=== PATIENT | male | born 1935 | race Caucasian/White ===

== ENCOUNTER 2016-05-15 10:42 | Inpatient (IN) | payer OTHER ==
[~2016-05-15] VITALS: Ht 180.3 cm; Wt 58.3 kg
[2016-05-15 12:13] LABS: HEMATOCRIT 31.4 % (38.0-50.0); MCH 27.9 PG (29.0-34.0); MCHC 30.6 G/DL (30.0-36.0); MCV 91.3 FL (86-99); MEAN PLAT.VOLUME 9.4 uM^3 (9.0-12.4); PLATELET COUNT 230 K/uL (156-360); RBC DIS.WIDTH-CV 16.8 % (11.8-14.6); RBC DIS.WIDTH-SD 54.8 % (39-53); RED BLOOD COUNT 3.44 M/uL (4.00-5.50); WHITE BLOOD COUNT 7.6 K/uL (4.1-10.2)
[2016-05-15 12:27] LABS: CHLORIDE 107 mEq/L (99-109); POTASSIUM 4.4 mEq/L (3.7-5.4); SODIUM 140 mEq/L (136-147)
[2016-05-15 12:30] LABS: ANION GAP 10 MEQ/L (2-14)
[2016-05-15 12:33] LABS: GFR ESTIMATE (CALCULATED) 56 mL/min/
[2016-05-15 12:34] LABS: UREA NITROGEN (BUN) 30 mg/dL (9-23)
[2016-05-15 12:35] LABS: TROP-I INTERPRETATION NEGATIVE; TROPONIN-I < 0.01 ng/mL (0.0-0.30)
[2016-05-15 12:37] LABS: GLUCOSE 113 mg/dL (70-99)
[2016-05-15] MEDS ORDERED: METFORMIN HCL1000 MG PO (12:44)
[2016-05-15] MEDS ORDERED: PREDNISONE5 MG PO (12:44)
[2016-05-15] MEDS ORDERED: LOSARTAN POTASS25 MG PO (12:44)
[2016-05-15] MEDS ORDERED: ATORVASTATIN CA20 MG PO (12:45)
[2016-05-15 20:49] VITALS: BP 141/67
[2016-05-15 21:25] LABS: TROP-I INTERPRETATION NEGATIVE; TROPONIN-I < 0.01 ng/mL (0.0-0.30)
[2016-05-15 23:33] VITALS: BP 127/61
[2016-05-16 04:19] VITALS: BP 145/66
[2016-05-16 04:41] LABS: HEMATOCRIT 31.9 % (38.0-50.0); MCH 27.7 PG (29.0-34.0); MCHC 30.7 G/DL (30.0-36.0); MCV 90.1 FL (86-99); MEAN PLAT.VOLUME 9.6 uM^3 (9.0-12.4); PLATELET COUNT 208 K/uL (156-360); RBC DIS.WIDTH-CV 16.9 % (11.8-14.6); RBC DIS.WIDTH-SD 54.1 % (39-53); RED BLOOD COUNT 3.54 M/uL (4.00-5.50); WHITE BLOOD COUNT 5.5 K/uL (4.1-10.2)
[2016-05-16 04:43] LABS: EOSINOPHIL (%) 0 % (0-5); IMMATURE GRANULOCYTE (%) 0.2 % (0.0-0.7); IMMATURE GRANULOCYTE COUNT 0.1 K/uL; LYMPHOCYTE COUNT 0.6 K/uL (1.0-2.8); MONOCYTE (%) 6.7 % (3-12); MONOCYTE COUNT 0.4 K/uL (0-0.8); NEUTROPHIL (%) 81.5 % (45-76); NEUTROPHIL COUNT 4.5 K/uL (1.8-6.4)
[2016-05-16 04:50] LABS: CHLORIDE 105 mEq/L (99-109); POTASSIUM 3.9 mEq/L (3.7-5.4); SODIUM 138 mEq/L (136-147)
[2016-05-16 04:52] LABS: GLUCOSE 98 mg/dL (70-99)
[2016-05-16 04:53] LABS: ANION GAP 9 MEQ/L (2-14)
[2016-05-16 04:54] LABS: TOTAL BILIRUBIN 0.4 mg/dL (0.0-1.0)
[2016-05-16 04:55] LABS: ALKALINE PHOSPHATASE 71 IU/L (3-129)
[2016-05-16 04:56] LABS: GFR ESTIMATE (CALCULATED) > 59 mL/min/
[2016-05-16 04:57] LABS: UREA NITROGEN (BUN) 24 mg/dL (9-23)
[2016-05-16 05:01] LABS: TROP-I INTERPRETATION NEGATIVE; TROPONIN-I < 0.01 ng/mL (0.0-0.30)
[2016-05-16 05:11] LABS: IRON 13 MCG/DL (35-150)
[2016-05-16 07:43] LABS: FERRITIN 180 NG/ML (22-322)
[2016-05-16 09:00] VITALS: BP 122/58
[2016-05-16 12:11] LABS: POINT-OF-CARE USER ID NUTSLF44
[2016-05-16 17:52] LABS: POINT-OF-CARE METER ID UU14174216; POINT-OF-CARE USER ID NUTSLF44
[2016-05-16 18:02] VITALS: BP 131/60
[2016-05-16 19:22] VITALS: BP 129/58
[2016-05-16 21:11] LABS: POINT-OF-CARE METER ID UU13113781
[2016-05-16 23:42] VITALS: BP 123/69
[2016-05-17 05:18] VITALS: BP 119/62
[2016-05-17 07:30] VITALS: BP 121/69
[2016-05-17] MEDS ORDERED: ZITHROMAX250 MG PO (12:47)
== END 2016-05-17 14:50 | disposition home or self-care (01) | DRG 315 ==
LOC: EME 10:42 → EDOF 16:26 → 4EAST 16:26
PROVIDERS: Internal Medicine
DX: I95.9 Hypotension, unspecified (principal); C18.9 Malignant neoplasm of colon, unspecified; C79.89 Secondary malignant neoplasm of other specified sites; R62.7 Adult failure to thrive; J20.9 Acute bronchitis, unspecified; R79.89 Other specified abnormal findings of blood chemistry; E11.9 Type 2 diabetes mellitus without complications; I44.7 Left bundle-branch block, unspecified; R63.4 Abnormal weight loss; E78.5 Hyperlipidemia, unspecified; E86.0 Dehydration; D64.9 Anemia, unspecified; R53.1 Weakness; Z92.3 Personal history of irradiation; Z93.3 Colostomy status; Z92.21 Personal history of antineoplastic chemotherapy; Z79.82 Long term (current) use of aspirin; Z79.4 Long term (current) use of insulin; Z93.1 Gastrostomy status
CPT/HCPCS: 36415; 71020; 74000; 80048; 80053; 82306; 82306 GA; 82607; 82607 GA; 82728; 82746; 82948; 83036; 83540; 84443; 84466; 84484; 85025; 85027; 93005; 93306; 99281; 99285; J0456; J1644; J1815; J7030; J7512

== ENCOUNTER 2016-05-22 15:45 | Emergency (ER) | payer OTHER ==
[~2016-05-22] VITALS: Ht 180.3 cm; Wt 62.5 kg
[~2016-05-22 15:45] MED LIST: ATORVASTATIN CA20 MG PO; LOSARTAN POTASS25 MG PO; METFORMIN HCL1000 MG PO; PREDNISONE5 MG PO; ZITHROMAX250 MG PO
[2016-05-22 16:46] LABS: HEMATOCRIT 32.9 % (38.0-50.0); MCH 27.7 PG (29.0-34.0); MCV 89.4 FL (86-99); MEAN PLAT.VOLUME 8.9 uM^3 (9.0-12.4); PLATELET COUNT 310 K/uL (156-360); RBC DIS.WIDTH-CV 16.5 % (11.8-14.6); RBC DIS.WIDTH-SD 52.3 % (39-53); RED BLOOD COUNT 3.68 M/uL (4.00-5.50); WHITE BLOOD COUNT 8.6 K/uL (4.1-10.2)
[2016-05-22 16:56] LABS: CHLORIDE 104 mEq/L (99-109); POTASSIUM 5.1 mEq/L (3.7-5.4); SODIUM 139 mEq/L (136-147)
[2016-05-22 16:57] LABS: GLUCOSE 153 mg/dL (70-99)
[2016-05-22 16:59] LABS: ANION GAP 11 MEQ/L (2-14)
[2016-05-22 17:01] LABS: GFR ESTIMATE (CALCULATED) > 59 mL/min/
[2016-05-22 17:02] LABS: UREA NITROGEN (BUN) 35 mg/dL (9-23)
[2016-05-22 17:05] LABS: TROP-I INTERPRETATION NEGATIVE; TROPONIN-I < 0.01 ng/mL (0.0-0.30)
[2016-05-22] MEDS ORDERED: ZITHROMAX Z-PA250 MG PO (18:30)
[2016-05-22 19:05] VITALS: BP 106/57
== END 2016-05-22 19:10 | disposition home or self-care (01) ==
LOC: EME 15:45
DX: J40 Bronchitis, not specified as acute or chronic (principal); E11.9 Type 2 diabetes mellitus without complications; E78.5 Hyperlipidemia, unspecified; I10 Essential (primary) hypertension; Z93.1 Gastrostomy status; Z85.038 Personal history of other malignant neoplasm of large intestine; Z88.6 Allergy status to analgesic agent
CPT/HCPCS: 71010; 80048; 84484; 85027; 85610; 85730; 86850; 86900; 86901; 93005; 99281; 99285

== ENCOUNTER 2016-06-14 18:18 | Emergency (ER) | payer OTHER ==
[~2016-06-14] VITALS: Ht 180.3 cm; Wt 58.8 kg
[~2016-06-14 18:18] MED LIST changes: +ZITHROMAX Z-PA250 MG PO
[2016-06-14 19:53] LABS: HEMATOCRIT 35.2 % (38.0-50.0); MCH 28.5 PG (29.0-34.0); MCHC 32.4 G/DL (30.0-36.0); RBC DIS.WIDTH-CV 19.3 % (11.8-14.6); RBC DIS.WIDTH-SD 61.2 % (39-53); WHITE BLOOD COUNT 7.9 K/uL (4.1-10.2)
[2016-06-14 20:04] LABS: CHLORIDE 105 mEq/L (99-109); POTASSIUM 4.5 mEq/L (3.7-5.4); SODIUM 136 mEq/L (136-147)
[2016-06-14 20:06] LABS: GLUCOSE 147 mg/dL (70-99)
[2016-06-14 20:07] LABS: ANION GAP 9 MEQ/L (2-14)
[2016-06-14 20:09] LABS: GFR ESTIMATE (CALCULATED) > 59 mL/min/
[2016-06-14 20:10] LABS: UREA NITROGEN (BUN) 38 mg/dL (9-23)
[2016-06-14 20:41] LABS: ADD MIUA? NO; BILIRUBIN NEGATIVE; BLOOD NEGATIVE; COLOR YELLOW ((YELLOW)); GLUCOSE (STRIP) >=500; KETONES NEGATIVE; LEUKOCYTES NEGATIVE; NITRITE NEGATIVE; PROTEIN (STRIP) 30; SPECIFIC GRAVITY 1.017 (1.000-1.030); UCUL ADDED? NO; UROBILINOGEN 0.2 MG/DL (0.2-1.0)
[2016-06-14 20:48] LABS: TROP-I INTERPRETATION NEGATIVE; TROPONIN-I 0.02 ng/mL (0.0-0.30)
[2016-06-14 21:01] LABS: MEAN PLAT.VOLUME 8.8 uM^3 (9.0-12.4)
[2016-06-14 21:02] LABS: PLATELET COUNT 189 K/uL (156-360)
[2016-06-14 21:09] LABS: INFLUENZA A VIRAL ANTIGEN NEGATIVE; INFLUENZA B VIRAL ANTIGEN NEGATIVE
[2016-06-14 21:56] VITALS: BP 127/73
== END 2016-06-14 21:56 | disposition home or self-care (01) ==
LOC: EME → EDBD 18:18 → EME 21:56
PROVIDERS: Emergency Medicine
DX: E86.0 Dehydration (principal); R53.1 Weakness; E11.9 Type 2 diabetes mellitus without complications; E78.5 Hyperlipidemia, unspecified; Z85.038 Personal history of other malignant neoplasm of large intestine; Z88.6 Allergy status to analgesic agent; Z87.891 Personal history of nicotine dependence
CPT/HCPCS: 71020; 80048; 81003; 84484; 85027; 87502; 93005; 99281; 99284; J7030

== ENCOUNTER 2016-07-09 11:12 | Emergency (ER) | payer OTHER ==
[~2016-07-09] VITALS: Ht 180.3 cm; Wt 58.9 kg
[2016-07-09 12:35] LABS: EOSINOPHIL (%) 0 % (0-5); HEMATOCRIT 35.6 % (38.0-50.0); IMMATURE GRANULOCYTE (%) 1.9 % (0.0-0.7); IMMATURE GRANULOCYTE COUNT 0.1 K/uL; INSTRUMENT ABS NEUTROPHIL CT 6.3 K/uL; LYMPHOCYTE COUNT 0.2 K/uL (1.0-2.8); MCH 29.2 PG (29.0-34.0); MCHC 32.3 G/DL (30.0-36.0); MCV 90.4 FL (86-99); MEAN PLAT.VOLUME 9.1 uM^3 (9.0-12.4); MONOCYTE (%) 3.5 % (3-12); MONOCYTE COUNT 0.2 K/uL (0-0.8); NEUTROPHIL (%) 91.1 % (45-76); NEUTROPHIL COUNT 6.3 K/uL (1.8-6.4); PLATELET COUNT 161 K/uL (156-360); RBC DIS.WIDTH-CV 18.7 % (11.8-14.6); RBC DIS.WIDTH-SD 62.8 % (39-53); RED BLOOD COUNT 3.94 M/uL (4.00-5.50); WHITE BLOOD COUNT 6.9 K/uL (4.1-10.2)
[2016-07-09 12:45] LABS: CHLORIDE 102 mEq/L (99-109); POTASSIUM 4.7 mEq/L (3.7-5.4); SODIUM 138 mEq/L (136-147)
[2016-07-09 12:47] LABS: GLUCOSE 323 mg/dL (70-99)
[2016-07-09 12:48] LABS: ANION GAP 14 MEQ/L (2-14)
[2016-07-09 12:49] LABS: TOTAL BILIRUBIN 0.6 mg/dL (0.0-1.0)
[2016-07-09 12:51] LABS: ALKALINE PHOSPHATASE 76 IU/L (3-129); GFR ESTIMATE (CALCULATED) > 59 mL/min/
[2016-07-09 12:52] LABS: UREA NITROGEN (BUN) 48 mg/dL (9-23)
[2016-07-09 12:54] LABS: LIPASE 102 U/L (1.0-51.0)
[2016-07-09 13:39] LABS: ADD MIUA? YES; BILIRUBIN NEGATIVE; BLOOD MODERATE; COLOR YELLOW ((YELLOW)); GLUCOSE (STRIP) >=500; KETONES NEGATIVE; LEUKOCYTES LARGE; NITRITE NEGATIVE; PROTEIN (STRIP) 30; SPECIFIC GRAVITY 1.023 (1.000-1.030); UROBILINOGEN 0.2 MG/DL (0.2-1.0)
[2016-07-09 13:46] LABS: BACTERIA RARE /HPF; BUDDING YEAST 1+; EPITHELIAL CELLS NONE SEEN /HPF; MUCUS NONE SEEN /LPF; UCUL ADDED? NO; WHITE BLOOD CELLS 20-30 /HPF (0-5)
[2016-07-09] MEDS ORDERED: BACTRIM,SEPT1 TABLET PO (16:27)
[2016-07-09 17:46] VITALS: BP 119/74
== END 2016-07-09 17:47 | disposition home or self-care (01) ==
LOC: EME → EDBD 11:12 → EME 17:47
PROVIDERS: Emergency Medicine
DX: N39.0 Urinary tract infection, site not specified (principal); R53.1 Weakness; R62.7 Adult failure to thrive; E11.9 Type 2 diabetes mellitus without complications; E78.5 Hyperlipidemia, unspecified; I10 Essential (primary) hypertension; K21.9 Gastro-esophageal reflux disease without esophagitis; Z79.84 Long term (current) use of oral hypoglycemic drugs; Z87.891 Personal history of nicotine dependence
CPT/HCPCS: 71010; 80053; 81003; 83690; 85025; 99281; 99285; J0696; J7030; J7050

== ENCOUNTER 2016-07-13 16:59 | Inpatient (IN) | payer OTHER ==
[~2016-07-13] VITALS: Ht 180.3 cm; Wt 64.0 kg
[~2016-07-13 16:59] MED LIST changes: +BACTRIM,SEPT1 TABLET PO
[2016-07-13 17:57] LABS: HEMATOCRIT 36.3 % (38.0-50.0); MCH 29.7 PG (29.0-34.0); MCHC 33.3 G/DL (30.0-36.0); MEAN PLAT.VOLUME 8.9 uM^3 (9.0-12.4); PLATELET COUNT 179 K/uL (156-360); RBC DIS.WIDTH-CV 18.6 % (11.8-14.6); RBC DIS.WIDTH-SD 61.1 % (39-53); RED BLOOD COUNT 4.08 M/uL (4.00-5.50)
[2016-07-13 17:58] LABS: WHITE BLOOD COUNT 9.4 K/uL (4.1-10.2)
[2016-07-13 18:02] LABS: CHLORIDE 99 mEq/L (99-109); SODIUM 132 mEq/L (136-147)
[2016-07-13 18:03] LABS: POTASSIUM 5.7 mEq/L (3.7-5.4)
[2016-07-13 18:04] LABS: GLUCOSE 263 mg/dL (70-99)
[2016-07-13 18:06] LABS: ANION GAP 13 MEQ/L (2-14)
[2016-07-13 18:08] LABS: ALKALINE PHOSPHATASE 73 IU/L (3-129); GFR ESTIMATE (CALCULATED) > 59 mL/min/
[2016-07-13 18:09] LABS: UREA NITROGEN (BUN) 49 mg/dL (9-23)
[2016-07-13 18:10] LABS: TOTAL BILIRUBIN 0.4 mg/dL (0.0-1.0)
[2016-07-13 18:35] LABS: ADD MIUA? YES; BILIRUBIN NEGATIVE; BLOOD NEGATIVE; COLOR YELLOW ((YELLOW)); GLUCOSE (STRIP) 150; KETONES NEGATIVE; LEUKOCYTES SMALL; NITRITE NEGATIVE; PROTEIN (STRIP) 30; SPECIFIC GRAVITY 1.019 (1.000-1.030); UROBILINOGEN 0.2 MG/DL (0.2-1.0)
[2016-07-13 19:19] LABS: BACTERIA NONE SEEN /HPF; EPITHELIAL CELLS NONE SEEN /HPF; HYALINE CASTS 0-5 /LPF; MUCUS NONE SEEN /LPF; RED BLOOD CELLS 0-5 /HPF (0-5); UCUL ADDED? NO
[2016-07-13] MEDS ORDERED: DEXAMETHASONE4 MG PO (20:17)
[2016-07-13] MEDS ORDERED: SERTRALINE HCL50 MG PO (20:17)
[2016-07-13 23:12] LABS: POINT-OF-CARE METER ID UU14100415
[2016-07-14 00:15] VITALS: BP 119/65
[2016-07-14 00:51] LABS: POINT-OF-CARE METER ID UU13113725
[2016-07-14 05:56] LABS: POINT-OF-CARE METER ID UU13113725
[2016-07-14 07:09] VITALS: BP 108/60
[2016-07-14 13:05] VITALS: BP 125/73
[2016-07-14 16:37] LABS: POINT-OF-CARE METER ID UU13113725
[2016-07-14 23:04] VITALS: BP 114/59
[2016-07-14 23:11] VITALS: BP 119/63
[2016-07-15 06:02] LABS: POINT-OF-CARE METER ID UU13113725
[2016-07-15 07:25] LABS: ANION GAP 7 MEQ/L (2-14); CHLORIDE 101 MEQ/L (99-109); GFR ESTIMATE (CALCULATED) > 59 mL/min/; GLUCOSE 187 mg/dL (70-99); POTASSIUM 4.6 MEQ/L (3.7-5.4); SAMPLE HEMOLYSIS CHECK 0; SAMPLE ICTERIC CHECK 0; SAMPLE LIPEMIA CHECK 0; SODIUM 133 MEQ/L (136-147); UREA NITROGEN (BUN) 38 mg/dL (9-23)
[2016-07-15 07:29] VITALS: BP 133/78
[2016-07-15 11:37] LABS: POINT-OF-CARE METER ID UU13113725
[2016-07-15 16:25] VITALS: BP 129/72
[2016-07-15 16:33] LABS: POINT-OF-CARE METER ID UU13113725
[2016-07-15 21:06] LABS: POINT-OF-CARE METER ID UU13113725
[2016-07-15 23:00] VITALS: BP 139/84
[2016-07-16 08:00] VITALS: BP 110/77
[2016-07-16 11:32] VITALS: BP 131/80
[2016-07-16 15:57] VITALS: BP 115/73
[2016-07-16 16:19] LABS: POINT-OF-CARE METER ID UU13113725
[2016-07-16 23:34] VITALS: BP 125/77
[2016-07-17 08:49] VITALS: BP 111/73
[2016-07-17 11:16] LABS: POINT-OF-CARE METER ID UU13113725
[2016-07-17 17:50] VITALS: BP 113/63
[2016-07-17 20:57] LABS: POINT-OF-CARE METER ID UU13113725
[2016-07-17 23:06] VITALS: BP 127/65
[2016-07-18 05:42] LABS: POINT-OF-CARE METER ID UU13113725
[2016-07-18 06:45] VITALS: BP 119/58
[2016-07-18 07:03] LABS: ALKALINE PHOSPHATASE 78 IU/L (3-129); DIRECT BILIRUBIN 0.1 mg/dL (0.0-0.3); IRON 82 MCG/DL (35-150); TOTAL BILIRUBIN 0.4 MG/DL (0.0-1.0)
[2016-07-18 07:16] LABS: LIPASE 142 U/L (1.0-51.0)
[2016-07-18 08:35] LABS: FERRITIN 324 NG/ML (22-322)
[2016-07-18 11:27] LABS: POINT-OF-CARE METER ID UU13113725
[2016-07-18 15:00] VITALS: BP 107/59
[2016-07-18 17:53] LABS: GLUCOSE 535 mg/dL (70-99)
[2016-07-18 21:12] LABS: POINT-OF-CARE METER ID UU13113725
[2016-07-19] VITALS: BP 137/79
[2016-07-19 06:44] VITALS: BP 125/62
[2016-07-19 07:20] LABS: ALKALINE PHOSPHATASE 79 IU/L (3-129); AMYLASE 92 IU/L (1-118); ANION GAP 7 MEQ/L (2-14); CHLORIDE 104 MEQ/L (99-109); GFR ESTIMATE (CALCULATED) > 59 mL/min/; LIPASE 108 U/L (1.0-51.0); POTASSIUM 4.4 MEQ/L (3.7-5.4); SAMPLE HEMOLYSIS CHECK 0; SAMPLE ICTERIC CHECK 0; SAMPLE LIPEMIA CHECK 0; SODIUM 136 MEQ/L (136-147); TOTAL BILIRUBIN 0.4 MG/DL (0.0-1.0); UREA NITROGEN (BUN) 31 mg/dL (9-23)
[2016-07-19 07:24] LABS: GLUCOSE 130 mg/dL (70-99)
[2016-07-19] MEDS ORDERED: LEVEMIR100 UNIT/2 SC (09:31)
[2016-07-19] MEDS ORDERED: BUPROPION HCL75 MG GT (09:31)
[2016-07-19] MEDS ORDERED: ZOLOFT25 MG PO (09:31)
[2016-07-19] MEDS ORDERED: PANTOPRAZOLE SO40 MG PO (09:31)
[2016-07-19 11:13] LABS: POINT-OF-CARE METER ID UU13113725
[2016-07-19 12:33] LABS: POINT-OF-CARE METER ID UU13113725
[2016-07-19 12:33] LABS: POINT-OF-CARE METER ID UU13113725
[2016-07-19 15:07] VITALS: BP 105/55
[2016-07-19] MEDS ORDERED: NOVOLOG PE100 UNITS/ SC (18:23)
[2016-07-19] MEDS ORDERED: GLUCAGON HCL1 MG IM (18:25)
[2016-07-19] MEDS ORDERED: PAIN RELIEF EX500 MG PO (18:25)
== END 2016-07-19 15:50 | DRG 689 ==
LOC: EME 16:59 → 5EAST 21:00 → EDOF 21:00 → 5EAST 07-14
PROVIDERS: Emergency Medicine; Internal Medicine; Specialist
DX: N39.0 Urinary tract infection, site not specified (principal); E43 Unspecified severe protein-calorie malnutrition; F33.9 Major depressive disorder, recurrent, unspecified; E11.9 Type 2 diabetes mellitus without complications; Z93.1 Gastrostomy status; I10 Essential (primary) hypertension; D63.8 Anemia in other chronic diseases classified elsewhere; Z93.3 Colostomy status; Z68.1 Body mass index [BMI] 19.9 or less, adult; K22.4 Dyskinesia of esophagus; Z85.048 Personal history of other malignant neoplasm of rectum, rectosigmoid junction, and anus; L89.153 Pressure ulcer of sacral region, stage 3
CPT/HCPCS: 72158; 74177; 74220; 80048; 80053; 80076; 81003; 82150; 82728; 82948; 83540; 83605; 83690; 84466; 84999; 85027; 87040; 87086; 92526 GN; 92610 GN; 97530 GP; 99281; 99285; J0696; J1815; J7030; J7050; J8540

== ENCOUNTER 2016-07-19 09:41 | Inpatient (IN) | payer OTHER ==
[~2016-07-19] VITALS: Ht 180.3 cm; Wt 60.3 kg
[~2016-07-19 09:41] MED LIST changes: +BUPROPION HCL75 MG GT; +DEXAMETHASONE4 MG PO; +LEVEMIR100 UNIT/2 SC; +PANTOPRAZOLE SO40 MG PO; +SERTRALINE HCL50 MG PO; +ZOLOFT25 MG PO
[2016-07-19 16:10] VITALS: BP 140/81
[2016-07-19 16:54] LABS: POINT-OF-CARE METER ID UU14174215
[2016-07-19] MEDS ORDERED: NOVOLOG PE100 UNITS/ SC (18:23)
[2016-07-19] MEDS ORDERED: PAIN RELIEF EX500 MG PO (18:25)
[2016-07-19] MEDS ORDERED: GLUCAGON HCL1 MG IM (18:25)
[2016-07-19 21:31] LABS: POINT-OF-CARE METER ID UU13113720
[2016-07-20] VITALS: BP 136/78
[2016-07-20 05:23] LABS: HEMATOCRIT 33.1 % (38.0-50.0); MCH 30.2 PG (29.0-34.0); MCHC 32.6 G/DL (30.0-36.0); MCV 92.5 FL (86-99); MEAN PLAT.VOLUME 9.2 uM^3 (9.0-12.4); PLATELET COUNT 151 K/uL (156-360); RBC DIS.WIDTH-CV 18.9 % (11.8-14.6); RBC DIS.WIDTH-SD 64.1 % (39-53); RED BLOOD COUNT 3.58 M/uL (4.00-5.50); WHITE BLOOD COUNT 7.9 K/uL (4.1-10.2)
[2016-07-20 06:18] VITALS: BP 125/68
[2016-07-20 06:25] LABS: ALKALINE PHOSPHATASE 76 IU/L (3-129); ANION GAP 6 MEQ/L (2-14); CHLORIDE 103 MEQ/L (99-109); GFR ESTIMATE (CALCULATED) > 59 mL/min/; GLUCOSE 194 mg/dL (70-99); POTASSIUM 4.7 MEQ/L (3.7-5.4); SAMPLE HEMOLYSIS CHECK 0; SAMPLE ICTERIC CHECK 0; SAMPLE LIPEMIA CHECK 0; SODIUM 136 MEQ/L (136-147); TOTAL BILIRUBIN 0.4 MG/DL (0.0-1.0); UREA NITROGEN (BUN) 30 mg/dL (9-23)
[2016-07-20 07:13] LABS: POINT-OF-CARE METER ID UU13113720
[2016-07-20 11:24] LABS: POINT-OF-CARE METER ID UU14174215; POINT-OF-CARE USER ID ENVGAF
[2016-07-20 15:51] VITALS: BP 140/79
[2016-07-20 16:14] LABS: POINT-OF-CARE METER ID UU13113720
[2016-07-20 21:25] LABS: POINT-OF-CARE METER ID UU14174215
[2016-07-21 05:44] VITALS: BP 115/58
[2016-07-21 07:01] LABS: POINT-OF-CARE METER ID UU14174215
[2016-07-21 07:16] LABS: POINT-OF-CARE METER ID UU14174215
[2016-07-21 11:19] LABS: POINT-OF-CARE METER ID UU14174215
[2016-07-21 15:03] VITALS: BP 118/96
[2016-07-21 16:33] LABS: POINT-OF-CARE METER ID UU13113720
[2016-07-21 21:31] LABS: POINT-OF-CARE METER ID UU14174215
[2016-07-22 03:28] LABS: POINT-OF-CARE METER ID UU14174215
[2016-07-22 05:30] VITALS: BP 121/67
[2016-07-22 06:57] LABS: POINT-OF-CARE METER ID UU14174215; POINT-OF-CARE USER ID ENVGAF
[2016-07-22 11:26] LABS: POINT-OF-CARE METER ID UU14174215
[2016-07-22 16:37] LABS: POINT-OF-CARE METER ID UU13113720
[2016-07-22 17:38] VITALS: BP 131/59
[2016-07-22 21:22] LABS: POINT-OF-CARE METER ID UU13113720
[2016-07-23 06:11] VITALS: BP 137/72
[2016-07-23 07:47] LABS: POINT-OF-CARE METER ID UU14174215
[2016-07-23 11:46] LABS: POINT-OF-CARE METER ID UU13113720
[2016-07-23 15:50] VITALS: BP 118/59
[2016-07-23 16:25] LABS: POINT-OF-CARE METER ID UU13113720
[2016-07-23 21:35] LABS: POINT-OF-CARE METER ID UU13113720
[2016-07-24 05:34] VITALS: BP 117/64
[2016-07-24 07:21] LABS: POINT-OF-CARE METER ID UU13113720
[2016-07-24 11:49] LABS: POINT-OF-CARE METER ID UU13113720
[2016-07-24 15:00] VITALS: BP 122/72
[2016-07-24 16:22] LABS: POINT-OF-CARE METER ID UU14174215
[2016-07-24 21:29] LABS: POINT-OF-CARE METER ID UU14174215
[2016-07-25 05:46] VITALS: BP 113/66
[2016-07-25 06:59] LABS: POINT-OF-CARE METER ID UU13113720; POINT-OF-CARE USER ID ENVGAF
[2016-07-25 11:37] LABS: POINT-OF-CARE METER ID UU14174215
[2016-07-25 12:30] VITALS: BP 128/69
[2016-07-25 14:45] VITALS: BP 112/57
[2016-07-25 16:34] LABS: POINT-OF-CARE METER ID UU14174215
[2016-07-25 21:17] LABS: POINT-OF-CARE METER ID UU13113720
[2016-07-26 05:56] VITALS: BP 134/66
[2016-07-26 06:47] LABS: ALKALINE PHOSPHATASE 72 IU/L (3-129); DIRECT BILIRUBIN 0.1 mg/dL (0.0-0.3); LIPASE 96 U/L (1.0-51.0)
[2016-07-26 06:48] LABS: TOTAL BILIRUBIN 0.3 MG/DL (0.0-1.0)
[2016-07-26 07:23] LABS: POINT-OF-CARE METER ID UU13113720
[2016-07-26 11:12] LABS: POINT-OF-CARE METER ID UU13113720
[2016-07-26 16:14] LABS: POINT-OF-CARE METER ID UU13113720
[2016-07-26 21:11] LABS: POINT-OF-CARE METER ID UU14174215; POINT-OF-CARE USER ID 610211320
[2016-07-27 06:24] VITALS: BP 133/73
[2016-07-27 07:00] VITALS: BP 139/70
[2016-07-27 07:04] LABS: POINT-OF-CARE METER ID UU14174215; POINT-OF-CARE USER ID ENVGAF
[2016-07-27 11:18] LABS: POINT-OF-CARE METER ID UU14174215; POINT-OF-CARE USER ID ENVGAF
[2016-07-27 15:30] VITALS: BP 131/75
[2016-07-27 16:37] LABS: POINT-OF-CARE METER ID UU14174215
[2016-07-27 21:56] LABS: POINT-OF-CARE METER ID UU14174215
[2016-07-28 07:35] LABS: POINT-OF-CARE METER ID UU14174215; POINT-OF-CARE USER ID AHSSSJB31
[2016-07-28 11:55] LABS: POINT-OF-CARE METER ID UU13113720
[2016-07-28 14:40] VITALS: BP 137/73
[2016-07-28 16:37] LABS: POINT-OF-CARE METER ID UU14174215
[2016-07-28 23:03] LABS: POINT-OF-CARE METER ID UU13113720
[2016-07-29 05:29] LABS: MCH 29.7 PG (29.0-34.0); MCHC 31.6 G/DL (30.0-36.0); MCV 94.1 FL (86-99); MEAN PLAT.VOLUME 9.3 uM^3 (9.0-12.4); NRBC (%) 0.7 /100 WBC (0-0); PLATELET COUNT 157 K/uL (156-360); RBC DIS.WIDTH-CV 18.6 % (11.8-14.6); RBC DIS.WIDTH-SD 64.4 % (39-53); WHITE BLOOD COUNT 7.2 K/uL (4.1-10.2)
[2016-07-29 05:49] VITALS: BP 120/65
[2016-07-29 05:57] LABS: ALKALINE PHOSPHATASE 85 IU/L (3-129); ANION GAP 9 MEQ/L (2-14); CHLORIDE 99 MEQ/L (99-109); GFR ESTIMATE (CALCULATED) > 59 mL/min/; GLUCOSE 228 mg/dL (70-99); POTASSIUM 4.1 MEQ/L (3.7-5.4); SAMPLE HEMOLYSIS CHECK 0; SAMPLE ICTERIC CHECK 0; SAMPLE LIPEMIA CHECK 0; SODIUM 136 MEQ/L (136-147); TOTAL BILIRUBIN 0.3 MG/DL (0.0-1.0); UREA NITROGEN (BUN) 28 mg/dL (9-23)
[2016-07-29 07:42] LABS: POINT-OF-CARE METER ID UU13113720
[2016-07-29 11:43] LABS: POINT-OF-CARE METER ID UU13113720
[2016-07-29 15:00] VITALS: BP 119/62
[2016-07-29 16:50] LABS: POINT-OF-CARE METER ID UU14174215
[2016-07-29 20:43] LABS: POINT-OF-CARE METER ID UU14174215
[2016-07-30 06:59] VITALS: BP 125/67
[2016-07-30 08:20] LABS: POINT-OF-CARE METER ID UU13113720
[2016-07-30 11:54] LABS: POINT-OF-CARE METER ID UU13113720
[2016-07-30 13:16] LABS: POINT-OF-CARE METER ID UU14174215
[2016-07-30 15:26] VITALS: BP 111/67
[2016-07-30 16:30] LABS: POINT-OF-CARE METER ID UU13113720
[2016-07-30 21:01] LABS: POINT-OF-CARE METER ID UU14174215
[2016-07-31 05:12] VITALS: BP 119/69
[2016-07-31 07:28] LABS: POINT-OF-CARE METER ID UU14174215; POINT-OF-CARE USER ID ENVGAF
[2016-07-31] MEDS ORDERED: CARRASYN HYDROG85 GM TP (09:43)
[2016-07-31] MEDS ORDERED: FOLIC ACID1 MG PO (09:43)
[2016-07-31] MEDS ORDERED: VITAMIN D-3 401 EACH PO (09:43)
[2016-07-31] MEDS ORDERED: THERAGRAN1 TABLET PO (09:43)
[2016-07-31] MEDS ORDERED: DEXAMETHASONE1.5 MG PO (09:57)
[2016-07-31 11:40] LABS: POINT-OF-CARE METER ID UU13113720; POINT-OF-CARE USER ID ENVGAF
[2016-07-31 16:00] VITALS: BP 131/63
[2016-07-31 16:08] LABS: POINT-OF-CARE METER ID UU13113720
== END 2016-07-31 18:33 | DRG 945 ==
LOC: 3WEST 09:41
PROVIDERS: Physical Medicine & Rehabilitation Pain Medicine; Psychiatry & Neurology Neurology; Specialist
PROC: F07M0ZZ Range of Motion and Joint Mobility Treatment of Musculoskeletal System - Whole Body (ICD-10-PCS; principal; 2016-07-19)
DX: R53.1 Weakness (principal); L89.153 Pressure ulcer of sacral region, stage 3; E46 Unspecified protein-calorie malnutrition; Z68.1 Body mass index [BMI] 19.9 or less, adult; G62.89 Other specified polyneuropathies; F32.9 Major depressive disorder, single episode, unspecified; E11.9 Type 2 diabetes mellitus without complications; N39.0 Urinary tract infection, site not specified; I10 Essential (primary) hypertension; D63.8 Anemia in other chronic diseases classified elsewhere; E78.5 Hyperlipidemia, unspecified; R94.5 Abnormal results of liver function studies; R91.8 Other nonspecific abnormal finding of lung field; K22.4 Dyskinesia of esophagus; E77.8 Other disorders of glycoprotein metabolism; E88.09 Other disorders of plasma-protein metabolism, not elsewhere classified; K44.9 Diaphragmatic hernia without obstruction or gangrene; Z85.048 Personal history of other malignant neoplasm of rectum, rectosigmoid junction, and anus; Z92.21 Personal history of antineoplastic chemotherapy; Z92.3 Personal history of irradiation; Z90.49 Acquired absence of other specified parts of digestive tract; Z93.1 Gastrostomy status; Z93.3 Colostomy status; Z79.4 Long term (current) use of insulin; Z91.81 History of falling
CPT/HCPCS: 70450; 74230; 80048; 80053; 80076; 81003; 82948; 83690; 84238 90; 84999; 85027; 92526 GN; 92611 GN; 97110 GO; 97530 GP; J1815; J8540

== ENCOUNTER 2016-08-06 05:11 | Inpatient (IN) | payer OTHER ==
[~2016-08-06] VITALS: Ht 177.8 cm; Wt 60.5 kg
[~2016-08-06 05:11] MED LIST changes: +CARRASYN HYDROG85 GM TP; +DEXAMETHASONE1.5 MG PO; +FOLIC ACID1 MG PO; +GLUCAGON HCL1 MG IM; +NOVOLOG PE100 UNITS/ SC; +PAIN RELIEF EX500 MG PO; +THERAGRAN1 TABLET PO; +VITAMIN D-3 401 EACH PO
[2016-08-06 05:40] LABS: CHLORIDE 98 mEq/L (99-109); POTASSIUM 4.6 mEq/L (3.7-5.4); SODIUM 133 mEq/L (136-147)
[2016-08-06 05:42] LABS: GLUCOSE 152 mg/dL (70-99)
[2016-08-06 05:43] LABS: ANION GAP 11 MEQ/L (2-14)
[2016-08-06 05:45] LABS: GFR ESTIMATE (CALCULATED) > 59 mL/min/
[2016-08-06 05:46] LABS: UREA NITROGEN (BUN) 38 mg/dL (9-23)
[2016-08-06 05:48] LABS: HEMATOCRIT 33.5 % (38.0-50.0); MCH 30.3 PG (29.0-34.0); MCHC 32.5 G/DL (30.0-36.0); MCV 93.1 FL (86-99); MEAN PLAT.VOLUME 9.4 uM^3 (9.0-12.4); NRBC (%) 0.9 /100 WBC (0-0); RBC DIS.WIDTH-CV 18.5 % (11.8-14.6); RBC DIS.WIDTH-SD 63.1 % (39-53)
[2016-08-06 05:50] LABS: PLATELET COUNT 229 K/uL (156-360); WHITE BLOOD COUNT 2.4 K/uL (4.1-10.2)
[2016-08-06 05:53] LABS: TROP-I INTERPRETATION NEGATIVE; TROPONIN-I 0.04 ng/mL (0.0-0.30)
[2016-08-06 06:06] LABS: CARBON DIOXIDE (BICARBONATE) 27.7 MEQ/L (20-31)
[2016-08-06] MEDS ORDERED: ZOLOFT25 MG PO (07:11)
[2016-08-06] MEDS ORDERED: THERA-M1 EACH PO (07:13)
[2016-08-06] MEDS ORDERED: WELLBUTRIN75 MG PO (07:14)
[2016-08-06] MEDS ORDERED: TYLENOL REGULA325 MG PO ×2 (07:18→07:24)
[2016-08-06] MEDS ORDERED: ZITHROMAX500 MG PO (07:19)
[2016-08-06] MEDS ORDERED: DULCOLAX10 MG PR (07:20)
[2016-08-06] MEDS ORDERED: DUONEB 2.5-0.5 M3 ML AEROSOL (07:21)
[2016-08-06] MEDS ORDERED: MILK OF MAGN PO (07:22)
[2016-08-06] MEDS ORDERED: MIRALAX255 GM PO (07:22)
[2016-08-06] MEDS ORDERED: THROAT DROPS2.8 MG MM (07:23)
[2016-08-06] MEDS ORDERED: ZOLOFT50 MG PO (07:26)
[2016-08-06] MEDS ORDERED: PRILOSEC20 MG PO (07:29)
[2016-08-06] MEDS ORDERED: ZITHROMAX250 MG PO (07:31)
[2016-08-06 07:35] LABS: ADD MIUA? YES; BILIRUBIN NEGATIVE; BLOOD NEGATIVE; COLOR AMBER ((YELLOW)); GLUCOSE (STRIP) NEGATIVE; KETONES NEGATIVE; LEUKOCYTES LARGE; NITRITE NEGATIVE; PROTEIN (STRIP) 100; SPECIFIC GRAVITY 1.026 (1.000-1.030); UROBILINOGEN 0.2 MG/DL (0.2-1.0)
[2016-08-06 07:45] LABS: BACTERIA NONE SEEN /HPF; BUDDING YEAST 4+; EPITHELIAL CELLS RARE /HPF; MUCUS 2+ /LPF; RED BLOOD CELLS TNTC /HPF (0-5); UCUL ADDED? YES; WHITE BLOOD CELLS TNTC /HPF (0-5)
[2016-08-06 08:25] LABS: D-DIMER ELISA > 4.00 mg/L FEU (< 0.57)
[2016-08-06 09:55] VITALS: BP 91/57
[2016-08-06 11:30] LABS: POINT-OF-CARE METER ID UU13113781
[2016-08-06 11:50] VITALS: BP 97/62
[2016-08-06 16:30] VITALS: BP 118/65
[2016-08-06 20:42] VITALS: BP 94/56
[2016-08-07 00:50] VITALS: BP 98/56
[2016-08-07 04:00] VITALS: BP 116/69
[2016-08-07 09:00] VITALS: BP 99/62
[2016-08-07 09:45] LABS: HEMATOCRIT 28.7 % (38.0-50.0); MCH 30.4 PG (29.0-34.0); MCHC 32.1 G/DL (30.0-36.0); MCV 94.7 FL (86-99); MEAN PLAT.VOLUME 9.1 uM^3 (9.0-12.4); PLATELET COUNT 171 K/uL (156-360); RBC DIS.WIDTH-CV 18.6 % (11.8-14.6); RBC DIS.WIDTH-SD 64.5 % (39-53); RED BLOOD COUNT 3.03 M/uL (4.00-5.50)
[2016-08-07 09:58] LABS: ANION GAP 8 MEQ/L (2-14); CHLORIDE 100 MEQ/L (99-109); GFR ESTIMATE (CALCULATED) > 59 mL/min/; SAMPLE HEMOLYSIS CHECK 0; SAMPLE ICTERIC CHECK 0; SAMPLE LIPEMIA CHECK 0; SODIUM 137 MEQ/L (136-147); UREA NITROGEN (BUN) 28 mg/dL (9-23)
[2016-08-07 10:14] LABS: GLUCOSE 77 mg/dL (70-99); POTASSIUM 3.4 MEQ/L (3.7-5.4)
[2016-08-07 16:33] LABS: POINT-OF-CARE METER ID UU14174216
[2016-08-07 16:40] VITALS: BP 99/64
[2016-08-07 18:03] LABS: INFLUENZA A VIRAL ANTIGEN POSITIVE; INFLUENZA B VIRAL ANTIGEN NEGATIVE
[2016-08-07 20:00] VITALS: BP 97/56
[2016-08-07 20:28] LABS: METH RESISTANT S AUREUS PCR NEGATIVE (NEGATIVE)
[2016-08-07 20:34] LABS: PROBE CHECK PASS; SPECIMEN PROCESSING CONTROL PASS
[2016-08-07 23:55] VITALS: BP 141/85
[2016-08-08] VITALS (27 sets, daily range): BP systolic 92–139; BP diastolic 51–85
[2016-08-08 01:05] LABS: BASE EXCESS -5.6 mEq/L (-3 to +3); BICARBONATE 23.5 mEq/L (22-26); CARBOXY HGB 1.3 % (0-5); METHEMOGLOBIN 1.5 % (0-1.5); PCO2 66 mm Hg (35-45); PO2 258 mm Hg (80-100)
[2016-08-08 01:06] LABS: COMMENTS - BLOOD GASES C+A+; DEVICE NRBM; FI02 100 %; SITE RR; pH 7.16 (7.35-7.45)
[2016-08-08 01:57] LABS: HEMATOCRIT 31.5 % (38.0-50.0); MCH 30.6 PG (29.0-34.0); MCHC 31.4 G/DL (30.0-36.0); MCV 97.2 FL (86-99); MEAN PLAT.VOLUME 9.5 uM^3 (9.0-12.4); NRBC (%) 0.5 /100 WBC (0-0); PLATELET COUNT 196 K/uL (156-360); RBC DIS.WIDTH-CV 18.7 % (11.8-14.6); RBC DIS.WIDTH-SD 66.8 % (39-53); RED BLOOD COUNT 3.24 M/uL (4.00-5.50)
[2016-08-08 01:58] LABS: WHITE BLOOD COUNT 6.2 K/uL (4.1-10.2)
[2016-08-08 02:12] LABS: TROP-I INTERPRETATION NEGATIVE; TROPONIN-I 0.07 ng/mL (0.0-0.30)
[2016-08-08 02:34] LABS: METH RESISTANT S AUREUS PCR NEGATIVE (NEGATIVE)
[2016-08-08 02:46] LABS: PROBE CHECK PASS; SPECIMEN PROCESSING CONTROL PASS
[2016-08-08 03:21] LABS: BASE EXCESS -1.2 mEq/L (-3 to +3); BICARBONATE 23.6 mEq/L (22-26); CARBOXY HGB 1.4 % (0-5); COMMENTS - BLOOD GASES C+A+; DEVICE 980 VENT; FI02 50 %; METHEMOGLOBIN 1.5 % (0-1.5); MODE SPONT; PCO2 39 mm Hg (35-45); PEEP 7 CM/H20; PO2 105 mm Hg (80-100); PRES. SUPPORT 15 CM/H2O; SITE RR; TOTAL RESP RATE 29 resp/min; pH 7.39 (7.35-7.45)
[2016-08-08 04:38] LABS: CHLORIDE 106 mEq/L (99-109); POTASSIUM 3.4 mEq/L (3.7-5.4); SODIUM 139 mEq/L (136-147)
[2016-08-08 04:42] LABS: ANION GAP 12 MEQ/L (2-14); TOTAL BILIRUBIN 0.4 mg/dL (0.0-1.0)
[2016-08-08 04:44] LABS: ALKALINE PHOSPHATASE 89 IU/L (3-129); GFR ESTIMATE (CALCULATED) > 59 mL/min/
[2016-08-08 04:45] LABS: UREA NITROGEN (BUN) 24 mg/dL (9-23)
[2016-08-08 04:46] LABS: DIRECT BILIRUBIN 0.2 mg/dL (0.0-0.3)
[2016-08-08 04:53] LABS: GLUCOSE 153 mg/dL (70-99)
[2016-08-08 05:23] LABS: ADD MIUA? YES; BILIRUBIN NEGATIVE; BLOOD SMALL; COLOR YELLOW ((YELLOW)); GLUCOSE (STRIP) 150; KETONES NEGATIVE; LEUKOCYTES NEGATIVE; NITRITE NEGATIVE; PROTEIN (STRIP) 30; SPECIFIC GRAVITY 1.014 (1.000-1.030); UROBILINOGEN 0.2 MG/DL (0.2-1.0)
[2016-08-08 05:33] LABS: BACTERIA RARE /HPF; EPITHELIAL CELLS RARE /HPF; MUCUS NONE SEEN /LPF; RED BLOOD CELLS 15-20 /HPF (0-5); UCUL ADDED? NO
[2016-08-08 05:40] LABS: MCHC 31.2 G/DL (30.0-36.0); MCV 96.3 FL (86-99); MEAN PLAT.VOLUME 9.6 uM^3 (9.0-12.4); PLATELET COUNT 156 K/uL (156-360); RBC DIS.WIDTH-CV 18.7 % (11.8-14.6); RBC DIS.WIDTH-SD 66.4 % (39-53); WHITE BLOOD COUNT 4.4 K/uL (4.1-10.2)
[2016-08-08 05:58] LABS: TROP-I INTERPRETATION NEGATIVE; TROPONIN-I 0.19 ng/mL (0.0-0.30)
[2016-08-08 06:08] LABS: ANION GAP 9 MEQ/L (2-14); CHLORIDE 105 MEQ/L (99-109); GFR ESTIMATE (CALCULATED) > 59 mL/min/; GLUCOSE 127 mg/dL (70-99); MAGNESIUM 1.6 mg/dl (1.3-2.7); POTASSIUM 2.9 MEQ/L (3.7-5.4); SAMPLE HEMOLYSIS CHECK 0; SAMPLE ICTERIC CHECK 0; SAMPLE LIPEMIA CHECK 0; SODIUM 140 MEQ/L (136-147); UREA NITROGEN (BUN) 25 mg/dL (9-23)
[2016-08-08 08:07] LABS: INTERNAL CONTROL VALID? YES
[2016-08-08 12:16] LABS: POINT-OF-CARE METER ID UU14174217
[2016-08-08 13:07] LABS: TROP-I INTERPRETATION NEGATIVE; TROPONIN-I 0.19 ng/mL (0.0-0.30)
[2016-08-08 16:29] LABS: POINT-OF-CARE METER ID UU13113731
[2016-08-08 18:27] LABS: TROP-I INTERPRETATION NEGATIVE; TROPONIN-I 0.17 ng/mL (0.0-0.30)
[2016-08-08 21:49] LABS: ANION GAP 11 MEQ/L (2-14); CHLORIDE 106 MEQ/L (99-109); GLUCOSE 150 mg/dL (70-99); MAGNESIUM 1.6 mg/dl (1.3-2.7); POTASSIUM 2.8 MEQ/L (3.7-5.4); SAMPLE HEMOLYSIS CHECK 0; SAMPLE ICTERIC CHECK 0; SAMPLE LIPEMIA CHECK 0; SODIUM 140 MEQ/L (136-147); UREA NITROGEN (BUN) 23 mg/dL (9-23)
[2016-08-08 22:17] LABS: POINT-OF-CARE METER ID UU13113731
[2016-08-08 22:39] LABS: GFR ESTIMATE (CALCULATED) > 59 mL/min/
[2016-08-09] VITALS (25 sets, daily range): BP systolic 75–130; BP diastolic 53–69
[2016-08-09 05:48] LABS: HEMATOCRIT 27.4 % (38.0-50.0); MCH 30.1 PG (29.0-34.0); MCHC 31.8 G/DL (30.0-36.0); MCV 94.8 FL (86-99); MEAN PLAT.VOLUME 9.4 uM^3 (9.0-12.4); PLATELET COUNT 161 K/uL (156-360); RBC DIS.WIDTH-CV 18.6 % (11.8-14.6); RBC DIS.WIDTH-SD 64.3 % (39-53); RED BLOOD COUNT 2.89 M/uL (4.00-5.50)
[2016-08-09 06:13] LABS: ANION GAP 9 MEQ/L (2-14); CHLORIDE 105 MEQ/L (99-109); GFR ESTIMATE (CALCULATED) > 59 mL/min/; GLUCOSE 160 mg/dL (70-99); MAGNESIUM 2.2 mg/dl (1.3-2.7); POTASSIUM 3.8 MEQ/L (3.7-5.4); SAMPLE HEMOLYSIS CHECK 0; SAMPLE ICTERIC CHECK 0; SAMPLE LIPEMIA CHECK 0; SODIUM 139 MEQ/L (136-147); UREA NITROGEN (BUN) 22 mg/dL (9-23)
[2016-08-09 16:53] LABS: POINT-OF-CARE METER ID UU14174217
[2016-08-09 22:25] LABS: POINT-OF-CARE METER ID UU13113803
[2016-08-10] VITALS (24 sets, daily range): BP systolic 89–114; BP diastolic 41–66
[2016-08-10 05:35] LABS: POINT-OF-CARE METER ID UU14162636
[2016-08-10 05:49] LABS: HEMATOCRIT 25.2 % (38.0-50.0); MCH 29.7 PG (29.0-34.0); MCHC 31.3 G/DL (30.0-36.0); MCV 94.7 FL (86-99); MEAN PLAT.VOLUME 9.7 uM^3 (9.0-12.4); NRBC (%) 0.5 /100 WBC (0-0); PLATELET COUNT 148 K/uL (156-360); RBC DIS.WIDTH-CV 18.5 % (11.8-14.6); RBC DIS.WIDTH-SD 64.1 % (39-53); RED BLOOD COUNT 2.66 M/uL (4.00-5.50); WHITE BLOOD COUNT 3.9 K/uL (4.1-10.2)
[2016-08-10 06:21] LABS: ANION GAP 10 MEQ/L (2-14); CHLORIDE 102 MEQ/L (99-109); GFR ESTIMATE (CALCULATED) > 59 mL/min/; GLUCOSE 178 mg/dL (70-99); MAGNESIUM 1.7 mg/dl (1.3-2.7); POTASSIUM 3.3 MEQ/L (3.7-5.4); SAMPLE HEMOLYSIS CHECK 0; SAMPLE ICTERIC CHECK 0; SAMPLE LIPEMIA CHECK 0; SODIUM 140 MEQ/L (136-147); UREA NITROGEN (BUN) 18 mg/dL (9-23)
[2016-08-10 08:28] LABS: POINT-OF-CARE METER ID UU14174217
[2016-08-10 12:51] LABS: POINT-OF-CARE METER ID UU14174217
[2016-08-10 17:55] LABS: POINT-OF-CARE METER ID UU14162636
[2016-08-11] VITALS (23 sets, daily range): BP systolic 90–122; BP diastolic 43–74
[2016-08-11 00:30] LABS: POINT-OF-CARE METER ID UU14174217; POINT-OF-CARE USER ID PHATLC
[2016-08-11 05:44] LABS: POINT-OF-CARE METER ID UU14174217; POINT-OF-CARE USER ID PHATLC
[2016-08-11 05:50] LABS: HEMATOCRIT 25.2 % (38.0-50.0); MCH 30.1 PG (29.0-34.0); MCHC 31.7 G/DL (30.0-36.0); MCV 94.7 FL (86-99); MEAN PLAT.VOLUME 9.7 uM^3 (9.0-12.4); PLATELET COUNT 168 K/uL (156-360); RBC DIS.WIDTH-CV 18.3 % (11.8-14.6); RBC DIS.WIDTH-SD 63.8 % (39-53); RED BLOOD COUNT 2.66 M/uL (4.00-5.50); WHITE BLOOD COUNT 4.1 K/uL (4.1-10.2)
[2016-08-11 06:15] LABS: ANION GAP 10 MEQ/L (2-14); CHLORIDE 101 MEQ/L (99-109); GFR ESTIMATE (CALCULATED) > 59 mL/min/; GLUCOSE 213 mg/dL (70-99); MAGNESIUM 1.6 mg/dl (1.3-2.7); POTASSIUM 3.4 MEQ/L (3.7-5.4); SAMPLE HEMOLYSIS CHECK 0; SAMPLE ICTERIC CHECK 0; SAMPLE LIPEMIA CHECK 0; SODIUM 141 MEQ/L (136-147); UREA NITROGEN (BUN) 20 mg/dL (9-23)
[2016-08-11 11:35] LABS: POINT-OF-CARE METER ID UU14174217
[2016-08-11 17:32] LABS: POINT-OF-CARE METER ID UU14174217
[2016-08-12] VITALS (14 sets, daily range): BP systolic 97–137; BP diastolic 59–84
[2016-08-12 00:39] LABS: POINT-OF-CARE METER ID UU13113731
[2016-08-12 05:35] LABS: HEMATOCRIT 25.7 % (38.0-50.0); MCH 29.6 PG (29.0-34.0); MCHC 30.7 G/DL (30.0-36.0); MCV 96.3 FL (86-99); MEAN PLAT.VOLUME 10.2 uM^3 (9.0-12.4); NRBC (%) 0.8 /100 WBC (0-0); PLATELET COUNT 170 K/uL (156-360); RBC DIS.WIDTH-CV 18.6 % (11.8-14.6); RBC DIS.WIDTH-SD 65.8 % (39-53); RED BLOOD COUNT 2.67 M/uL (4.00-5.50); WHITE BLOOD COUNT 3.6 K/uL (4.1-10.2)
[2016-08-12 05:48] LABS: POINT-OF-CARE METER ID UU13113731
[2016-08-12 05:48] LABS: ANION GAP 8 MEQ/L (2-14); CHLORIDE 106 MEQ/L (99-109); GFR ESTIMATE (CALCULATED) > 59 mL/min/; GLUCOSE 250 mg/dL (70-99); MAGNESIUM 1.8 mg/dl (1.3-2.7); POTASSIUM 3.7 MEQ/L (3.7-5.4); SAMPLE HEMOLYSIS CHECK 0; SAMPLE ICTERIC CHECK 0; SAMPLE LIPEMIA CHECK 0; SODIUM 144 MEQ/L (136-147); UREA NITROGEN (BUN) 22 mg/dL (9-23)
[2016-08-12 10:01] LABS: BASE EXCESS 8.8 mEq/L (-3 to +3); METHEMOGLOBIN 1.3 % (0-1.5); PCO2 42 mm Hg (35-45)
[2016-08-12 10:02] LABS: BICARBONATE 32.8 mEq/L (22-26); COMMENTS - BLOOD GASES A+C+; DEVICE NC; O2 FLOW 2 L/MIN; PO2 66 mm Hg (80-100); SITE LR; TOTAL RESP RATE 10 resp/min
[2016-08-12 12:23] LABS: POINT-OF-CARE METER ID UU13113731
[2016-08-12 17:51] LABS: POINT-OF-CARE METER ID UU13113731
[2016-08-13] VITALS (12 sets, daily range): BP systolic 106–141; BP diastolic 66–85
[2016-08-13 05:19] LABS: POINT-OF-CARE METER ID UU13113731
[2016-08-13 06:36] LABS: MCH 29.6 PG (29.0-34.0); MCHC 30.4 G/DL (30.0-36.0); MCV 97.4 FL (86-99); MEAN PLAT.VOLUME 10.7 uM^3 (9.0-12.4); NRBC (%) 0.9 /100 WBC (0-0); PLATELET COUNT 216 K/uL (156-360); RBC DIS.WIDTH-CV 18.7 % (11.8-14.6); RBC DIS.WIDTH-SD 66.9 % (39-53); RED BLOOD COUNT 2.67 M/uL (4.00-5.50)
[2016-08-13 06:53] LABS: ANION GAP 8 MEQ/L (2-14); CHLORIDE 110 MEQ/L (99-109); GFR ESTIMATE (CALCULATED) > 59 mL/min/; GLUCOSE 254 mg/dL (70-99); MAGNESIUM 1.8 mg/dl (1.3-2.7); POTASSIUM 4.4 MEQ/L (3.7-5.4); SAMPLE HEMOLYSIS CHECK 0; SAMPLE ICTERIC CHECK 0; SAMPLE LIPEMIA CHECK 0; SODIUM 147 MEQ/L (136-147); UREA NITROGEN (BUN) 24 mg/dL (9-23)
[2016-08-13 07:07] LABS: WHITE BLOOD COUNT 5.5 K/uL (4.1-10.2)
[2016-08-13 12:20] LABS: POINT-OF-CARE METER ID UU14174217
[2016-08-13 12:39] LABS: POINT-OF-CARE METER ID UU14162636
[2016-08-13 17:56] LABS: POINT-OF-CARE METER ID UU14174217
[2016-08-14 05:34] LABS: POINT-OF-CARE METER ID UU14174225
[2016-08-14 06:52] LABS: HEMATOCRIT 24.9 % (38.0-50.0); MCH 30.1 PG (29.0-34.0); MCHC 30.9 G/DL (30.0-36.0); MCV 97.3 FL (86-99); MEAN PLAT.VOLUME 10.7 uM^3 (9.0-12.4); NRBC (%) 1.2 /100 WBC (0-0); PLATELET COUNT 240 K/uL (156-360); RBC DIS.WIDTH-CV 18.7 % (11.8-14.6); RBC DIS.WIDTH-SD 67.5 % (39-53); RED BLOOD COUNT 2.56 M/uL (4.00-5.50); WHITE BLOOD COUNT 5.9 K/uL (4.1-10.2)
[2016-08-14 07:14] LABS: ANION GAP 9 MEQ/L (2-14); CHLORIDE 115 MEQ/L (99-109); GFR ESTIMATE (CALCULATED) > 59 mL/min/; GLUCOSE 174 mg/dL (70-99); MAGNESIUM 1.9 mg/dl (1.3-2.7); POTASSIUM 4.2 MEQ/L (3.7-5.4); SAMPLE HEMOLYSIS CHECK 0; SAMPLE ICTERIC CHECK 0; SAMPLE LIPEMIA CHECK 0; SODIUM 151 MEQ/L (136-147); UREA NITROGEN (BUN) 26 mg/dL (9-23)
[2016-08-14 07:46] VITALS: BP 136/86
[2016-08-14 16:06] VITALS: BP 144/92
[2016-08-14 18:02] LABS: POINT-OF-CARE METER ID UU14174225
[2016-08-14 23:55] VITALS: BP 134/83
[2016-08-15 00:05] LABS: POINT-OF-CARE METER ID UU14174225
[2016-08-15 05:02] LABS: EOSINOPHIL (%) 0 % (0-5); HEMATOCRIT 27.9 % (38.0-50.0); IMMATURE GRANULOCYTE (%) 1.7 % (0.0-0.7); IMMATURE GRANULOCYTE COUNT 0.1 K/uL; INSTRUMENT ABS NEUTROPHIL CT 7.3 K/uL; LYMPHOCYTE COUNT 0.4 K/uL (1.0-2.8); MCH 29.8 PG (29.0-34.0); MCHC 30.5 G/DL (30.0-36.0); MCV 97.9 FL (86-99); MEAN PLAT.VOLUME 10.8 uM^3 (9.0-12.4); MONOCYTE (%) 3.7 % (3-12); MONOCYTE COUNT 0.3 K/uL (0-0.8); NEUTROPHIL (%) 90.1 % (45-76); NEUTROPHIL COUNT 7.3 K/uL (1.8-6.4); NRBC (%) 1.2 /100 WBC (0-0); PLATELET COUNT 267 K/uL (156-360); RBC DIS.WIDTH-SD 68.1 % (39-53); RED BLOOD COUNT 2.85 M/uL (4.00-5.50); WHITE BLOOD COUNT 8.1 K/uL (4.1-10.2)
[2016-08-15 05:09] LABS: CHLORIDE 110 mEq/L (99-109); POTASSIUM 3.9 mEq/L (3.7-5.4); SODIUM 149 mEq/L (136-147)
[2016-08-15 05:11] LABS: GLUCOSE 178 mg/dL (70-99)
[2016-08-15 05:12] LABS: ANION GAP 10 MEQ/L (2-14)
[2016-08-15 05:15] LABS: GFR ESTIMATE (CALCULATED) > 59 mL/min/
[2016-08-15 05:16] LABS: UREA NITROGEN (BUN) 30 mg/dL (9-23)
[2016-08-15 05:26] LABS: POINT-OF-CARE METER ID UU14188625
[2016-08-15 07:33] VITALS: BP 136/76
[2016-08-15 15:06] VITALS: BP 130/74
[2016-08-15 15:24] VITALS: BP 119/71
[2016-08-15 17:52] LABS: POINT-OF-CARE METER ID UU14174225
[2016-08-16 00:12] VITALS: BP 133/73
[2016-08-16 00:31] LABS: POINT-OF-CARE METER ID UU14188625
[2016-08-16 06:07] LABS: POINT-OF-CARE METER ID UU14174225
[2016-08-16 07:39] VITALS: BP 134/83
[2016-08-16 15:03] VITALS: BP 116/71
[2016-08-16 17:51] LABS: POINT-OF-CARE METER ID UU14188625
[2016-08-16 23:16] LABS: INTER. NORMALIZED RATIO 1.1; PROTHROMBIN TIME 11.4 (9.2-11.2)
[2016-08-17] VITALS: BP 133/74
[2016-08-17 05:54] LABS: POINT-OF-CARE METER ID UU14174225
[2016-08-17 07:05] LABS: INTER. NORMALIZED RATIO 1.2; PROTHROMBIN TIME 11.8 (9.2-11.2); PTT 32.9 (25-32)
[2016-08-17 07:21] LABS: POINT-OF-CARE METER ID UU14174225; POINT-OF-CARE USER ID BHSTSA
[2016-08-17] MEDS ORDERED: LOVENOX60 MG/0.6 SC (07:37)
[2016-08-17] MEDS ORDERED: COUMADIN5 MG PO (07:37)
[2016-08-17 07:48] VITALS: BP 134/64
== END 2016-08-17 14:28 | DRG 871 ==
LOC: EME 05:11 → 4WEST 07:59 → EDOF 07:59 → 4EAST 07:59 → 5SOUTH 07:59 → 4EAST 09:53 → 4WEST 08-08 01:15 → 5SOUTH 08-13 22:15
PROVIDERS: Emergency Medicine; Family Medicine; Hospitalist; Internal Medicine; Surgery Surgical Critical Care
DX: A41.9 Sepsis, unspecified organism (principal); I26.99 Other pulmonary embolism without acute cor pulmonale; E87.2 Acidosis; E44.0 Moderate protein-calorie malnutrition; J96.01 Acute respiratory failure with hypoxia; J96.90 Respiratory failure, unspecified, unspecified whether with hypoxia or hypercapnia; E46 Unspecified protein-calorie malnutrition; I48.91 Unspecified atrial fibrillation; R13.10 Dysphagia, unspecified; I50.9 Heart failure, unspecified; I11.0 Hypertensive heart disease with heart failure; C20 Malignant neoplasm of rectum; I82.432 Acute embolism and thrombosis of left popliteal vein; J96.02 Acute respiratory failure with hypercapnia; Z68.1 Body mass index [BMI] 19.9 or less, adult; I50.20 Unspecified systolic (congestive) heart failure; N39.0 Urinary tract infection, site not specified; I82.493 Acute embolism and thrombosis of other specified deep vein of lower extremity, bilateral; I27.2 Other secondary pulmonary hypertension; E11.9 Type 2 diabetes mellitus without complications; I44.7 Left bundle-branch block, unspecified; D72.819 Decreased white blood cell count, unspecified; R05 Cough; F32.9 Major depressive disorder, single episode, unspecified; R41.82 Altered mental status, unspecified; Z87.891 Personal history of nicotine dependence; Z97.8 Presence of other specified devices; E78.5 Hyperlipidemia, unspecified; Z88.6 Allergy status to analgesic agent; I34.0 Nonrheumatic mitral (valve) insufficiency; I08.1 Rheumatic disorders of both mitral and tricuspid valves; J11.1 Influenza due to unidentified influenza virus with other respiratory manifestations; R41.0 Disorientation, unspecified; Z93.3 Colostomy status; Z93.1 Gastrostomy status; R91.8 Other nonspecific abnormal finding of lung field
CPT/HCPCS: 36600; 71010; 71020; 71275; 80048; 80048 91; 80076; 80202; 81003; 82803; 82948; 83605; 83735; 83880; 84100; 84484; 85025; 85027; 85379; 85610; 85730; 87040; 87070; 87086; 87106; 87205; 87449; 87502; 87641; 92526 GN; 92610 GN; 93005; 93306; 93970; 94002; 94640 76; 94667; 94668; 94760; 94799; 97530 GO; 97530 GP; 99202; 99281; 99285; J0456; J1650; J1815; J1940; J2543; J3370; J3475; J7030; J7050; S0028

== ENCOUNTER 2016-09-05 11:05 | Emergency (ER) | payer OTHER ==
[~2016-09-05] VITALS: Ht 180.3 cm; Wt 63.7 kg
[~2016-09-05 11:05] MED LIST changes: +COUMADIN5 MG PO; +DULCOLAX10 MG PR; +DUONEB 2.5-0.5 M3 ML AEROSOL; +LOVENOX60 MG/0.6 SC; +MILK OF MAGN PO; +MIRALAX255 GM PO; +PRILOSEC20 MG PO; +THERA-M1 EACH PO; +THROAT DROPS2.8 MG MM; +TYLENOL REGULA325 MG PO; +WELLBUTRIN75 MG PO; +ZITHROMAX500 MG PO; +ZOLOFT50 MG PO
[2016-09-05 12:34] LABS: EOSINOPHIL (%) 0 % (0-5); IMMATURE GRANULOCYTE (%) 0.6 % (0.0-0.7); IMMATURE GRANULOCYTE COUNT 0.1 K/uL; INSTRUMENT ABS NEUTROPHIL CT 6.3 K/uL; LYMPHOCYTE COUNT 0.8 K/uL (1.0-2.8); MCH 29.9 PG (29.0-34.0); MCHC 31.3 G/DL (30.0-36.0); MCV 95.5 FL (86-99); MEAN PLAT.VOLUME 9.9 uM^3 (9.0-12.4); MONOCYTE (%) 10.1 % (3-12); MONOCYTE COUNT 0.8 K/uL (0-0.8); NEUTROPHIL (%) 78.9 % (45-76); NEUTROPHIL COUNT 6.3 K/uL (1.8-6.4); PLATELET COUNT 244 K/uL (156-360); RBC DIS.WIDTH-CV 17.5 % (11.8-14.6); RBC DIS.WIDTH-SD 61.5 % (39-53); RED BLOOD COUNT 3.35 M/uL (4.00-5.50)
[2016-09-05 12:48] LABS: INTER. NORMALIZED RATIO 1.9; PROTHROMBIN TIME 19.7 (9.2-11.2)
[2016-09-05 12:56] LABS: TROP-I INTERPRETATION NEGATIVE; TROPONIN-I 0.02 ng/mL (0.0-0.30)
[2016-09-05 13:20] LABS: CHLORIDE 103 mEq/L (99-109); POTASSIUM 4.7 mEq/L (3.7-5.4); SODIUM 137 mEq/L (136-147)
[2016-09-05 13:22] LABS: GLUCOSE 159 mg/dL (70-99)
[2016-09-05 13:23] LABS: ANION GAP 11 MEQ/L (2-14)
[2016-09-05 13:24] LABS: TOTAL BILIRUBIN 0.3 mg/dL (0.0-1.0)
[2016-09-05 13:25] LABS: ALKALINE PHOSPHATASE 96 IU/L (3-129)
[2016-09-05 13:26] LABS: GFR ESTIMATE (CALCULATED) > 59 mL/min/
[2016-09-05 13:27] LABS: UREA NITROGEN (BUN) 38 mg/dL (9-23)
[2016-09-05 13:29] LABS: LIPASE 145 U/L (1.0-51.0)
[2016-09-05 15:30] VITALS: BP 111/65
== END 2016-09-05 19:33 ==
LOC: EME → EDBD 11:05 → EME 11:05
PROVIDERS: Emergency Medicine
DX: K85.90 Acute pancreatitis without necrosis or infection, unspecified (principal); Z93.3 Colostomy status
CPT/HCPCS: 74022; 76705; 80053; 83690; 84484; 85025; 85610; 93005; J7030

== ENCOUNTER → 2016-09-14 | Outpatient (CLI) | payer OTHER | LOC: RAD 08:48 | DX: R09.89 Other specified symptoms and signs involving the circulatory and respiratory systems (principal) | CPT/HCPCS: 74230; 92611 GN; G8996 GN CL; G8997 GN CL; G8998 GN CL ==

== ENCOUNTER 2016-11-10 22:20 | Inpatient (IN) | payer OTHER ==
[~2016-11-10] VITALS: Ht 180.3 cm; Wt 66.2 kg
[2016-11-10 23:01] LABS: HEMATOCRIT 28.3 % (38.0-50.0); MCHC 32.5 G/DL (30.0-36.0); MCV 89.3 FL (86-99); MEAN PLAT.VOLUME 9.5 uM^3 (9.0-12.4); PLATELET COUNT 241 K/uL (156-360); RBC DIS.WIDTH-CV 14.5 % (11.8-14.6); RBC DIS.WIDTH-SD 47.3 % (39-53); RED BLOOD COUNT 3.17 M/uL (4.00-5.50); WHITE BLOOD COUNT 9.1 K/uL (4.1-10.2)
[2016-11-10 23:12] LABS: CHLORIDE 95 mEq/L (99-109); POTASSIUM 4.2 mEq/L (3.7-5.4); SODIUM 131 mEq/L (136-147)
[2016-11-10 23:14] LABS: GLUCOSE 123 mg/dL (70-99)
[2016-11-10 23:15] LABS: ANION GAP 13 MEQ/L (2-14)
[2016-11-10 23:18] LABS: GFR ESTIMATE (CALCULATED) > 59 mL/min/
[2016-11-10 23:19] LABS: UREA NITROGEN (BUN) 53 mg/dL (9-23)
[2016-11-11 06:08] VITALS: BP 100/60
[2016-11-11 06:24] LABS: POINT-OF-CARE METER ID UU13113725
[2016-11-11 07:34] VITALS: BP 139/57
[2016-11-11 07:54] LABS: POINT-OF-CARE METER ID UU13113725
[2016-11-11 11:54] LABS: POINT-OF-CARE METER ID UU13113725
[2016-11-11] MEDS ORDERED: LORATADINE10 M2 PO (13:52)
[2016-11-11] MEDS ORDERED: XARELTO20 MG PO (13:52)
[2016-11-11 16:28] VITALS: BP 105/58
[2016-11-11 23:01] VITALS: BP 117/62
[2016-11-12 06:44] LABS: EOSINOPHIL (%) 1.7 % (0-5); EOSINOPHIL COUNT 0.1 K/uL (0-0.3); HEMATOCRIT 29.4 % (38.0-50.0); IMMATURE GRANULOCYTE (%) 0.5 % (0.0-0.7); INSTRUMENT ABS NEUTROPHIL CT 4.6 K/uL; LYMPHOCYTE COUNT 0.5 K/uL (1.0-2.8); MCH 28.7 PG (29.0-34.0); MCHC 31.6 G/DL (30.0-36.0); MCV 90.7 FL (86-99); MEAN PLAT.VOLUME 9.1 uM^3 (9.0-12.4); MONOCYTE (%) 11.3 % (3-12); MONOCYTE COUNT 0.7 K/uL (0-0.8); NEUTROPHIL (%) 77.8 % (45-76); NEUTROPHIL COUNT 4.6 K/uL (1.8-6.4); PLATELET COUNT 251 K/uL (156-360); RBC DIS.WIDTH-CV 14.2 % (11.8-14.6); RBC DIS.WIDTH-SD 47.7 % (39-53); RED BLOOD COUNT 3.24 M/uL (4.00-5.50); WHITE BLOOD COUNT 5.9 K/uL (4.1-10.2)
[2016-11-12 07:18] LABS: ALKALINE PHOSPHATASE 52 IU/L (3-129); ANION GAP 14 MEQ/L (2-14); CHLORIDE 103 MEQ/L (99-109); GFR ESTIMATE (CALCULATED) > 59 mL/min/; SAMPLE HEMOLYSIS CHECK 0; SAMPLE ICTERIC CHECK 0; SAMPLE LIPEMIA CHECK 0; UREA NITROGEN (BUN) 37 mg/dL (9-23)
[2016-11-12 07:19] VITALS: BP 107/60
[2016-11-12 07:20] LABS: GLUCOSE 72 mg/dL (70-99); SODIUM 139 MEQ/L (136-147); TOTAL BILIRUBIN 0.4 MG/DL (0.0-1.0)
[2016-11-12 15:16] VITALS: BP 94/52
[2016-11-12 23:26] VITALS: BP 105/57
[2016-11-13 06:07] LABS: POINT-OF-CARE METER ID UU13113725
[2016-11-13 06:56] LABS: GFR ESTIMATE (CALCULATED) > 59 mL/min/; UREA NITROGEN (BUN) 34 mg/dL (9-23)
[2016-11-13 08:17] VITALS: BP 105/63
[2016-11-13 11:06] LABS: POINT-OF-CARE METER ID UU13113725
[2016-11-13 16:28] LABS: POINT-OF-CARE METER ID UU13113725
[2016-11-13 16:36] VITALS: BP 106/64
[2016-11-13 23:21] VITALS: BP 113/59
[2016-11-14 00:34] LABS: POINT-OF-CARE METER ID UU13113725
[2016-11-14 06:15] LABS: POINT-OF-CARE METER ID UU13113725
[2016-11-14 06:37] LABS: EOSINOPHIL (%) 1.1 % (0-5); EOSINOPHIL COUNT 0.1 K/uL (0-0.3); HEMATOCRIT 30.2 % (38.0-50.0); IMMATURE GRANULOCYTE (%) 0.2 % (0.0-0.7); INSTRUMENT ABS NEUTROPHIL CT 3.5 K/uL; LYMPHOCYTE COUNT 0.6 K/uL (1.0-2.8); MCH 29.7 PG (29.0-34.0); MCHC 32.8 G/DL (30.0-36.0); MCV 90.7 FL (86-99); MEAN PLAT.VOLUME 9.4 uM^3 (9.0-12.4); MONOCYTE (%) 12.1 % (3-12); MONOCYTE COUNT 0.6 K/uL (0-0.8); NEUTROPHIL (%) 73.5 % (45-76); NEUTROPHIL COUNT 3.5 K/uL (1.8-6.4); PLATELET COUNT 279 K/uL (156-360); RBC DIS.WIDTH-CV 14.6 % (11.8-14.6); RBC DIS.WIDTH-SD 48.8 % (39-53); RED BLOOD COUNT 3.33 M/uL (4.00-5.50); WHITE BLOOD COUNT 4.7 K/uL (4.1-10.2)
[2016-11-14 07:27] VITALS: BP 102/52
[2016-11-14 07:33] LABS: ALKALINE PHOSPHATASE 67 IU/L (3-129); ANION GAP 9 MEQ/L (2-14); CHLORIDE 104 MEQ/L (99-109); GFR ESTIMATE (CALCULATED) > 59 mL/min/; POTASSIUM 4.5 MEQ/L (3.7-5.4); SAMPLE HEMOLYSIS CHECK 0; SAMPLE ICTERIC CHECK 0; SAMPLE LIPEMIA CHECK 0; SODIUM 141 MEQ/L (136-147); UREA NITROGEN (BUN) 31 mg/dL (9-23)
[2016-11-14 07:34] LABS: GLUCOSE 91 mg/dL (70-99); TOTAL BILIRUBIN 0.3 MG/DL (0.0-1.0)
[2016-11-14 11:02] LABS: POINT-OF-CARE METER ID UU13113725
[2016-11-14] MEDS ORDERED: CLEOCIN300 MG PO (16:02)
[2016-11-14 16:44] VITALS: BP 103/59; BP 103/595
[2016-11-14 17:22] LABS: POINT-OF-CARE METER ID UU13113725
== END 2016-11-14 17:33 | disposition home health service (06) | DRG 345 ==
LOC: EME → EDBD 22:20 → EME 22:20 → 5EAST 11-11 04:02 → EDOF 11-11 04:02 → 5EAST 11-11 05:38
PROVIDERS: Emergency Medicine; Hospitalist; Nurse Practitioner Adult Health; Pediatrics
PROC: 0D9P0ZZ Drainage of Rectum, Open Approach (ICD-10-PCS; principal; 2016-11-12)
DX: K61.1 Rectal abscess (principal); L89.159 Pressure ulcer of sacral region, unspecified stage; G30.9 Alzheimer's disease, unspecified; F02.80 Dementia in other diseases classified elsewhere, unspecified severity, without behavioral disturbance, psychotic disturbance, mood disturbance, and anxiety; K62.5 Hemorrhage of anus and rectum; E87.1 Hypo-osmolality and hyponatremia; L03.319 Cellulitis of trunk, unspecified; E11.9 Type 2 diabetes mellitus without complications; E78.5 Hyperlipidemia, unspecified; K21.9 Gastro-esophageal reflux disease without esophagitis; I10 Essential (primary) hypertension; Z79.01 Long term (current) use of anticoagulants; Z79.84 Long term (current) use of oral hypoglycemic drugs; Z79.899 Other long term (current) drug therapy; Z85.048 Personal history of other malignant neoplasm of rectum, rectosigmoid junction, and anus; Z87.440 Personal history of urinary (tract) infections; Z93.1 Gastrostomy status; R13.10 Dysphagia, unspecified; Z93.3 Colostomy status; R53.1 Weakness; R79.89 Other specified abnormal findings of blood chemistry; K63.89 Other specified diseases of intestine
CPT/HCPCS: 74177; 80048; 80053; 82565; 82948; 84520; 85025; 85027; 87040; 87070; 87075; 87205; 99281; 99284; J1815; J7030; S0028

== ENCOUNTER 2017-03-27 12:52 | Inpatient (IN) | payer OTHER ==
[~2017-03-27] VITALS: Ht 180.3 cm; Wt 90.0 kg
[~2017-03-27 12:52] MED LIST changes: +CLEOCIN300 MG PO; +LORATADINE10 M2 PO; +XARELTO20 MG PO
[2017-03-27 15:10] LABS: BASOPHIL COUNT 0.1 K/uL (0-0.1); EOSINOPHIL (%) 6.1 % (0-5); EOSINOPHIL COUNT 0.7 K/uL (0-0.3); HEMATOCRIT 28.7 % (38.0-50.0); IMMATURE GRANULOCYTE (%) 0.5 % (0.0-0.7); IMMATURE GRANULOCYTE COUNT 0.1 K/uL; INSTRUMENT ABS NEUTROPHIL CT 8.4 K/uL; LYMPHOCYTE COUNT 0.7 K/uL (1.0-2.8); MCH 26.9 PG (29.0-34.0); MCHC 31.7 G/DL (30.0-36.0); MCV 84.9 FL (86-99); MEAN PLAT.VOLUME 9.4 uM^3 (9.0-12.4); MONOCYTE (%) 8.7 % (3-12); MONOCYTE COUNT 0.9 K/uL (0-0.8); NEUTROPHIL (%) 78.1 % (45-76); NEUTROPHIL COUNT 8.4 K/uL (1.8-6.4); PLATELET COUNT 367 K/uL (156-360); RBC DIS.WIDTH-CV 16.2 % (11.8-14.6); RBC DIS.WIDTH-SD 50.8 % (39-53); RED BLOOD COUNT 3.38 M/uL (4.00-5.50); WHITE BLOOD COUNT 10.8 K/uL (4.1-10.2)
[2017-03-27 15:20] LABS: CHLORIDE 99 mEq/L (99-109); POTASSIUM 4.9 mEq/L (3.7-5.4); SODIUM 131 mEq/L (136-147)
[2017-03-27 15:22] LABS: GLUCOSE 130 mg/dL (70-99)
[2017-03-27 15:23] LABS: ANION GAP 10 MEQ/L (2-14)
[2017-03-27 15:24] LABS: TOTAL BILIRUBIN 0.3 mg/dL (0.0-1.0)
[2017-03-27 15:26] LABS: ALKALINE PHOSPHATASE 97 IU/L (3-129); GFR ESTIMATE (CALCULATED) > 59 mL/min/
[2017-03-27 15:27] LABS: UREA NITROGEN (BUN) 59 mg/dL (9-23)
[2017-03-27 15:31] LABS: TROP-I INTERPRETATION NEGATIVE; TROPONIN-I 0.01 ng/mL (0.0-0.30)
[2017-03-27 15:36] LABS: ADD MIUA? YES; BILIRUBIN NEGATIVE; BLOOD NEGATIVE; COLOR YELLOW ((YELLOW)); GLUCOSE (STRIP) NEGATIVE; KETONES NEGATIVE; LEUKOCYTES LARGE; NITRITE NEGATIVE; PROTEIN (STRIP) NEGATIVE; SPECIFIC GRAVITY 1.015 (1.000-1.030); UROBILINOGEN 0.2 MG/DL (0.2-1.0)
[2017-03-27 16:16] LABS: AMORPHOUS URATES CRYSTALS 2+; BACTERIA RARE /HPF; CASTS NONE SEEN /LPF; CRYSTALS PRESENT; EPITHELIAL CELLS NONE SEEN /HPF; MUCUS NONE SEEN /LPF; RED BLOOD CELLS 0-5 /HPF (0-5); WHITE BLOOD CELLS 30-40 /HPF (0-5)
[2017-03-27] MEDS ORDERED: TYLENOL EXTRA500 MG PO (18:13)
[2017-03-27] MEDS ORDERED: ASCORBIC ACID500 M3 PO (18:13)
[2017-03-27] MEDS ORDERED: IRON325 M1 PO (18:14)
[2017-03-27] MEDS ORDERED: ELDERTONIC473 ML PO (18:15)
[2017-03-27] MEDS ORDERED: PREVACID SOLUTA30 MG PO (18:16)
[2017-03-27] MEDS ORDERED: LOMOTIL TABLET1 EACH PO (18:16)
[2017-03-27] MEDS ORDERED: PROSOURCE LIQUI30 ML PO (18:18)
[2017-03-27] MEDS ORDERED: JEVITY 1.5 CAL237 ML PO (18:18)
[2017-03-27 22:15] VITALS: BP 129/68
[2017-03-27 23:42] LABS: POINT-OF-CARE METER ID UU13113698
[2017-03-28 04:00] VITALS: BP 135/66
[2017-03-28 05:27] LABS: HEMATOCRIT 26.1 % (38.0-50.0); MCH 27.5 PG (29.0-34.0); MCHC 31.8 G/DL (30.0-36.0); MCV 86.4 FL (86-99); MEAN PLAT.VOLUME 9.1 uM^3 (9.0-12.4); PLATELET COUNT 328 K/uL (156-360); RBC DIS.WIDTH-CV 16.5 % (11.8-14.6); RBC DIS.WIDTH-SD 52.7 % (39-53); RED BLOOD COUNT 3.02 M/uL (4.00-5.50); WHITE BLOOD COUNT 7.1 K/uL (4.1-10.2)
[2017-03-28 05:59] LABS: ANION GAP 8 MEQ/L (2-14); CHLORIDE 103 MEQ/L (99-109); GFR ESTIMATE (CALCULATED) > 59 mL/min/; POTASSIUM 4.6 MEQ/L (3.7-5.4); SAMPLE HEMOLYSIS CHECK 0; SAMPLE ICTERIC CHECK 0; SAMPLE LIPEMIA CHECK 0; SODIUM 137 MEQ/L (136-147); UREA NITROGEN (BUN) 49 mg/dL (9-23)
[2017-03-28 06:00] LABS: GLUCOSE 90 mg/dL (70-99)
[2017-03-28 08:10] LABS: POINT-OF-CARE METER ID UU13113781
[2017-03-28 09:30] VITALS: BP 119/58
[2017-03-28 11:48] LABS: POINT-OF-CARE METER ID UU14174216
[2017-03-28 12:00] VITALS: BP 122/54
[2017-03-28 15:21] VITALS: BP 129/61
[2017-03-28 16:48] LABS: POINT-OF-CARE METER ID UU13113781
[2017-03-28 19:15] VITALS: BP 130/59
[2017-03-28 20:48] LABS: POINT-OF-CARE METER ID UU14314088
[2017-03-29 02:26] VITALS: BP 118/74
[2017-03-29 05:38] VITALS: BP 117/52
[2017-03-29 06:24] LABS: EOSINOPHIL (%) 8.9 % (0-5); EOSINOPHIL COUNT 0.6 K/uL (0-0.3); HEMATOCRIT 25.4 % (38.0-50.0); IMMATURE GRANULOCYTE (%) 0.3 % (0.0-0.7); INSTRUMENT ABS NEUTROPHIL CT 4.7 K/uL; LYMPHOCYTE COUNT 0.7 K/uL (1.0-2.8); MCHC 31.5 G/DL (30.0-36.0); MCV 85.8 FL (86-99); MEAN PLAT.VOLUME 9.2 uM^3 (9.0-12.4); MONOCYTE (%) 8.8 % (3-12); MONOCYTE COUNT 0.6 K/uL (0-0.8); NEUTROPHIL (%) 71.5 % (45-76); NEUTROPHIL COUNT 4.7 K/uL (1.8-6.4); PLATELET COUNT 346 K/uL (156-360); RBC DIS.WIDTH-CV 16.7 % (11.8-14.6); RED BLOOD COUNT 2.96 M/uL (4.00-5.50); WHITE BLOOD COUNT 6.5 K/uL (4.1-10.2)
[2017-03-29 06:45] LABS: ALKALINE PHOSPHATASE 73 IU/L (3-129); ANION GAP 9 MEQ/L (2-14); CHLORIDE 101 MEQ/L (99-109); GFR ESTIMATE (CALCULATED) > 59 mL/min/; GLUCOSE 215 mg/dL (70-99); POTASSIUM 4.3 MEQ/L (3.7-5.4); SAMPLE HEMOLYSIS CHECK 0; SAMPLE ICTERIC CHECK 0; SAMPLE LIPEMIA CHECK 0; SODIUM 134 MEQ/L (136-147); TOTAL BILIRUBIN 0.3 MG/DL (0.0-1.0); UREA NITROGEN (BUN) 43 mg/dL (9-23)
[2017-03-29 08:05] LABS: POINT-OF-CARE METER ID UU14314088
[2017-03-29 09:35] VITALS: BP 128/61
[2017-03-29 11:25] LABS: POINT-OF-CARE METER ID UU14174216
[2017-03-29 13:17] VITALS: BP 106/76
[2017-03-29 16:21] LABS: POINT-OF-CARE METER ID UU14174216
[2017-03-29 17:08] VITALS: BP 105/62
[2017-03-29 20:00] VITALS: BP 112/58
[2017-03-29 21:41] LABS: POINT-OF-CARE METER ID UU14174216
[2017-03-30 00:13] LABS: POINT-OF-CARE METER ID UU14174216
[2017-03-30 00:58] VITALS: BP 127/65
[2017-03-30 03:29] VITALS: BP 117/74
[2017-03-30 07:59] LABS: POINT-OF-CARE METER ID UU14174216
[2017-03-30 08:09] VITALS: BP 106/56
[2017-03-30 09:26] LABS: EOSINOPHIL (%) 8.2 % (0-5); EOSINOPHIL COUNT 0.6 K/uL (0-0.3); HEMATOCRIT 25.4 % (38.0-50.0); IMMATURE GRANULOCYTE (%) 0.3 % (0.0-0.7); INSTRUMENT ABS NEUTROPHIL CT 5.2 K/uL; LYMPHOCYTE COUNT 0.6 K/uL (1.0-2.8); MCH 27.4 PG (29.0-34.0); MCHC 31.9 G/DL (30.0-36.0); MCV 85.8 FL (86-99); MEAN PLAT.VOLUME 8.7 uM^3 (9.0-12.4); MONOCYTE (%) 7.1 % (3-12); MONOCYTE COUNT 0.5 K/uL (0-0.8); NEUTROPHIL COUNT 5.2 K/uL (1.8-6.4); PLATELET COUNT 311 K/uL (156-360); RBC DIS.WIDTH-CV 16.7 % (11.8-14.6); RBC DIS.WIDTH-SD 52.4 % (39-53); RED BLOOD COUNT 2.96 M/uL (4.00-5.50); WHITE BLOOD COUNT 6.9 K/uL (4.1-10.2)
[2017-03-30 09:32] LABS: INTERNAL CONTROL VALID? YES
[2017-03-30 09:59] LABS: ANION GAP 9 MEQ/L (2-14); CHLORIDE 102 MEQ/L (99-109); GFR ESTIMATE (CALCULATED) > 59 mL/min/; GLUCOSE 239 mg/dL (70-99); POTASSIUM 4.5 MEQ/L (3.7-5.4); SAMPLE HEMOLYSIS CHECK 0; SAMPLE ICTERIC CHECK 0; SAMPLE LIPEMIA CHECK 0; SODIUM 137 MEQ/L (136-147); UREA NITROGEN (BUN) 42 mg/dL (9-23)
[2017-03-30 11:13] LABS: POINT-OF-CARE METER ID UU14174216
[2017-03-30 14:22] LABS: HEMATOCRIT 26.3 % (38.0-50.0); MCH 27.5 PG (29.0-34.0); MCHC 31.9 G/DL (30.0-36.0); MCV 85.9 FL (86-99); MEAN PLAT.VOLUME 9.2 uM^3 (9.0-12.4); PLATELET COUNT 339 K/uL (156-360); RBC DIS.WIDTH-CV 16.9 % (11.8-14.6); RBC DIS.WIDTH-SD 53.5 % (39-53); RED BLOOD COUNT 3.06 M/uL (4.00-5.50); WHITE BLOOD COUNT 6.5 K/uL (4.1-10.2)
[2017-03-30 14:48] LABS: ALKALINE PHOSPHATASE 79 IU/L (3-129); ANION GAP 10 MEQ/L (2-14); CHLORIDE 100 MEQ/L (99-109); GFR ESTIMATE (CALCULATED) > 59 mL/min/; GLUCOSE 245 mg/dL (70-99); POTASSIUM 4.4 MEQ/L (3.7-5.4); SAMPLE HEMOLYSIS CHECK 0; SAMPLE ICTERIC CHECK 0; SAMPLE LIPEMIA CHECK 0; SODIUM 134 MEQ/L (136-147); UREA NITROGEN (BUN) 42 mg/dL (9-23)
[2017-03-30 14:53] LABS: TOTAL BILIRUBIN 0.2 MG/DL (0.0-1.0)
[2017-03-30 15:41] VITALS: BP 112/64
[2017-03-30 16:23] LABS: POINT-OF-CARE METER ID UU14174216
[2017-03-30 21:14] LABS: POINT-OF-CARE METER ID UU14174216
[2017-03-30 23:39] VITALS: BP 118/63
[2017-03-31 07:42] LABS: POINT-OF-CARE METER ID UU13113781
[2017-03-31 08:13] VITALS: BP 102/60
[2017-03-31 12:03] LABS: POINT-OF-CARE METER ID UU13113781
[2017-03-31 12:17] VITALS: BP 117/70
[2017-03-31 16:15] VITALS: BP 109/57
[2017-03-31 16:45] LABS: POINT-OF-CARE METER ID UU13113781
[2017-03-31 20:47] VITALS: BP 119/69
[2017-03-31 21:20] LABS: POINT-OF-CARE METER ID UU14117124
[2017-03-31 23:41] VITALS: BP 117/59
[2017-04-01 04:27] VITALS: BP 124/64
[2017-04-01 06:26] LABS: POINT-OF-CARE METER ID UU14149397
[2017-04-01 08:16] VITALS: BP 125/57
[2017-04-01 11:45] VITALS: BP 115/66
[2017-04-01 12:17] LABS: POINT-OF-CARE METER ID UU14117124
== END 2017-04-01 12:54 | disposition home health service (06) | DRG 85 ==
LOC: EME 12:52 → 4EAST 19:45 → EDOF 19:45 → ENRESERV 19:57 → 4EAST 22:05 → ENRESERV 03-31 14:10 → 3EAST 03-31 20:36
PROVIDERS: Emergency Medicine; Hospitalist; Nurse Practitioner Adult Health; Pediatrics; Physician Assistant; Physician Assistant Medical
DX: S06.5X0A Traumatic subdural hemorrhage without loss of consciousness, initial encounter (principal); S42.251A Displaced fracture of greater tuberosity of right humerus, initial encounter for closed fracture; S00.01XA Abrasion of scalp, initial encounter; W01.0XXA Fall on same level from slipping, tripping and stumbling without subsequent striking against object, initial encounter; N39.0 Urinary tract infection, site not specified; G93.41 Metabolic encephalopathy; D63.8 Anemia in other chronic diseases classified elsewhere; E11.9 Type 2 diabetes mellitus without complications; I48.91 Unspecified atrial fibrillation; G30.9 Alzheimer's disease, unspecified; F02.80 Dementia in other diseases classified elsewhere, unspecified severity, without behavioral disturbance, psychotic disturbance, mood disturbance, and anxiety; I10 Essential (primary) hypertension; E78.5 Hyperlipidemia, unspecified; K21.9 Gastro-esophageal reflux disease without esophagitis; R13.10 Dysphagia, unspecified; R29.6 Repeated falls; B35.1 Tinea unguium; F32.9 Major depressive disorder, single episode, unspecified; Z79.01 Long term (current) use of anticoagulants; Z79.84 Long term (current) use of oral hypoglycemic drugs; Z80.0 Family history of malignant neoplasm of digestive organs; Z85.048 Personal history of other malignant neoplasm of rectum, rectosigmoid junction, and anus; Z86.711 Personal history of pulmonary embolism; Z86.718 Personal history of other venous thrombosis and embolism; Z87.891 Personal history of nicotine dependence; Z91.81 History of falling; Z93.1 Gastrostomy status; Z93.3 Colostomy status
CPT/HCPCS: 70450; 71010; 71020; 72125; 73020; 73030; 73060; 73110; 73130; 80048; 80053; 81003; 82272; 82948; 83605; 84484; 85025; 85027; 87040; 93005; 99281; 99285; J0696; J1815; J7030

== ENCOUNTER 2017-10-13 07:43 | Emergency (ER) | payer OTHER ==
[~2017-10-13] VITALS: Ht 180.3 cm; Wt 70.4 kg
[~2017-10-13 07:43] MED LIST changes: +ASCORBIC ACID500 M3 PO; +ELDERTONIC473 ML PO; +IRON325 M1 PO; +JEVITY 1.5 CAL237 ML PO; +LOMOTIL TABLET1 EACH PO; +PREVACID SOLUTA30 MG PO; +PROSOURCE LIQUI30 ML PO; +TYLENOL EXTRA500 MG PO
[2017-10-13 09:58] VITALS: BP 124/65
== END 2017-10-13 09:58 | disposition home or self-care (01) ==
LOC: EME 07:43
DX: K94.23 Gastrostomy malfunction (principal); E11.9 Type 2 diabetes mellitus without complications; I10 Essential (primary) hypertension; K21.9 Gastro-esophageal reflux disease without esophagitis; E78.5 Hyperlipidemia, unspecified; G30.9 Alzheimer's disease, unspecified; F02.80 Dementia in other diseases classified elsewhere, unspecified severity, without behavioral disturbance, psychotic disturbance, mood disturbance, and anxiety; Z79.84 Long term (current) use of oral hypoglycemic drugs; Z79.01 Long term (current) use of anticoagulants; Z87.891 Personal history of nicotine dependence; Z93.3 Colostomy status; Z93.1 Gastrostomy status; Z98.890 Other specified postprocedural states; Z85.048 Personal history of other malignant neoplasm of rectum, rectosigmoid junction, and anus; Z85.038 Personal history of other malignant neoplasm of large intestine; Z88.6 Allergy status to analgesic agent; Z88.8 Allergy status to other drugs, medicaments and biological substances
CPT/HCPCS: 74018; 99281; 99283

== ENCOUNTER → 2017-10-15 | Outpatient (CLI) | payer OTHER | END | disposition home or self-care (01) | LOC: RAD 13:09 | PROC: 0DH87UZ Insertion of Feeding Device into Small Intestine, Via Natural or Artificial Opening (ICD-10-PCS; principal; 2017-10-15) | DX: K94.20 Gastrostomy complication, unspecified (principal); R63.3 Feeding difficulties | CPT/HCPCS: B4087 ==

== ENCOUNTER → 2017-12-27 | Outpatient (CLI) | payer OTHER | END | disposition home or self-care (01) | LOC: RAD 12:42 | PROC: 0DH67UZ Insertion of Feeding Device into Stomach, Via Natural or Artificial Opening (ICD-10-PCS; principal; 2017-12-27) | DX: R13.12 Dysphagia, oropharyngeal phase (principal); Z87.19 Personal history of other diseases of the digestive system; Z86.711 Personal history of pulmonary embolism; Z86.79 Personal history of other diseases of the circulatory system; Z86.59 Personal history of other mental and behavioral disorders; Z93.3 Colostomy status; Z85.9 Personal history of malignant neoplasm, unspecified; Z92.21 Personal history of antineoplastic chemotherapy; Z92.3 Personal history of irradiation; Z98.890 Other specified postprocedural states; Z87.891 Personal history of nicotine dependence | CPT/HCPCS: B4087 ==